=== PATIENT | female | born 1980 | race African-American/Black ===

== ENCOUNTER 2017-04-20 15:57 | Emergency (ER) | payer OTHER ==
[~2017-04-20] VITALS: Ht 172.7 cm; Wt 58.1 kg
--- NOTE | 2017-04-20 16:56 | ED GI/GU/ABDOMINAL COMPLAINT ---
History of Present Illness General Chief Complaint: Abdominal Pain/Flank Pain Stated Complaint: LT FLANK PAIN Source: patient Exam Limitations: no limitations Vital Signs & Intake/Output Vital Signs & Intake/Output Vital Signs Date Time Temp Pulse Resp B/P B/P Pulse O2 O2 Flow FiO2 Mean Ox Delivery Rate 04/20 1752 98.6 100 18 118/86 97 Room Air 04/20 1605 98.6 113 18 111/81 98 Room Air ED Intake and Output 04/21 0000 04/20 1200 Intake Total 0 Output Total Balance 0 Intake, Oral 0 Patient 128 lb Weight Weight Reported by Patient Measurement Method Allergies Coded Allergies: No Known Allergies (04/20/17) Reconcile Medications Bupropion HCl (Wellbutrin XL) 300 MG TAB.ER.24H 1 TAB PO QAM MENTAL HEALTH ( Reported) Bupropion HCl (Wellbutrin XL) 150 MG TAB.ER.24H 1 TAB PO QAM MENTAL HEALTH ( Reported) Buspirone HCl 15 MG TABLET 1 TAB PO BID MENTAL HEALTH (Reported) Ciprofloxacin HCl (Cipro) 500 MG TABLET 1 TAB PO BID UTI Hydroxyzine Pamoate (Vistaril) 25 MG CAPSULE 1 CAP PO 4XDAILY ANXIETY ( Reported) Levonorgestrel (Mirena) 20 MCG/24 HOUR (5 YEARS) IUD CONTROL (Reported) Meloxicam (Mobic) 15 MG TABLET 1 TAB PO DAILY PAIN Mirtazapine (Remeron) 15 MG TABLET 1 TAB PO QPM MENTAL HEALTH (Reported) Quetiapine Fumarate (Seroquel XR) 400 MG TAB.ER.24H 1 TAB PO QPM MENTAL HEALTH (Reported) Quetiapine Fumarate (Seroquel) 50 MG TABLET 1-2 TAB PO PRN ANXIETY (Reported) Triage Note: 36 YO FEMALE C/O L SIDED LOWER BACK PAIN. STATES SHE DID HAVE PAIN WITH URINATION BUT THEN IT STOPPED. -NVD. Triage Nurses Notes Reviewed? yes ? N Is pt currently ? No Onset: Gradual Duration: constant Timing: recent history Severity Numbers: 5 Location: urethral Radiation: back HPI: Patient presents emergency room with concerns of gradual onset of left-sided back pain dysuria and increased frequency of urination Patient has been able tolerate by mouth Denies any fever chills denies any abdominal pain nausea vomiting. Patient has not taken any medications for symptoms. Denies any vaginal bleeding vaginal discharge (LINDSAY INMAN) Past History Travel History Traveled to [place] past 21 day No Medical History Any Pertinent Medical History? 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 No (LINDSAY INMAN) Review of Systems Review of Systems Constitutional: Denies: chills, fever. EENTM: Reports: no symptoms. Respiratory: Reports: no symptoms. Cardiovascular: Reports: no symptoms. GI: Reports: see HPI. Genitourinary: Reports: see HPI, dysuria. Musculoskeletal: Reports: see HPI, back pain. Skin: Reports: no symptoms. Neurological/Psychological: Reports: no symptoms. Hematologic/Endocrine: Reports: no symptoms. Immunologic/Allergic: Reports: no symptoms. All Other Systems: Reviewed and Negative (LINDSAY INMAN) Physical Exam Physical Exam General Appearance: no apparent distress, alert, comfortable Gastrointestinal: normal bowel sounds, soft, non-tender, no organomegaly Comments: Well-developed well-nourished person in no acute distress HEENT: Normal EENT exam Neck: Supple, no lymphadenopathy, normal range of motion without pain or tenderness Back: LEFT CVA tenderness. Cardiovascular: Regular rate and rhythms no murmurs rubs or gallops, normal JVP Respiratory: Chest nontender. No respiratory distress.breath sounds clear to auscultation bilaterally Abdomen: Soft, nontender nondistended, no appreciable organomegaly. Normal bowel sounds. No ascites Extremity: No edema, no calf tenderness to palpation, normal and equal pulses. Neuro: Alert oriented x3, motor sensory normal, Skin: No appreciable rash on exposed skin, skin is warm and dry. Psych: Mood and affect is normal, memory and judgment is normal. Core Measures ACS in differential dx? No Severe Sepsis Present: No Septic Shock Present: No (LINDSAY INMAN) Progress Differential Diagnosis: AAA, AMI, appendicitis, biliary colic, kidney stone, sEPSIS, uti, PYELONEPHRITIS Plan of Care: Orders Procedure Date/time Status URINE 04/20 1606 Complete URINALYSIS 04/20 160 Complete Laboratory Tests 04/20/17 1705: Urine Color YEL, Urine Clarity HAZY H, Urine pH 6.0, Ur Specific [place] >= 1.030, Urine Protein 100 H, Urine Ketones NEG, Urine Nitrite POS H, Urine Bilirubin NEG, Urine Urobilinogen 0.2, Ur Leukocyte Esterase MOD H, Ur Microscopic SEDIMENT EXAMINED, Urine RBC 10-15 H, Urine WBC 15-25 H, Ur Epithelial Cells RARE, Urine Bacteria MOD H, Urine Hemoglobin LARGE H, Urine Glucose NEG, Urine Test NEGATIVE Patient currently is in no apparent distress afebrile nontoxic appearing is able tolerate by mouth due to history of present as an exam findings patient does have concerns of left CVA tenderness and urinary tract infection for pyelonephritis. Patient was strongly advised to closely monitor symptoms and if symptoms worsen to return to emergency room. Upon discharge patient looks well on no apparent distress and will comply with discharge instructions and had no questions (LINDSAY INMAN) Initial ED EKG: none (LINDSAY INMAN) Departure Departure Disposition: HOME OR SELF CARE Condition: Stable Clinical Impression Primary Impression: Pyelonephritis Referrals: UNKNOWN (PCP) Additional Instructions: As discussed begin the prescription of ciprofloxacin as directed for the full course. Begin the prescription of meloxicam for pain and inflammation. If symptoms worsen or if YOU develop a new concerning symptom return to emergency room immediately. Prescription is waiting a [facility] pharmacy. Follow up with primary care doctor's appointment as you have one this week for further evaluation treatment Departure Forms: Customer Survey General Discharge Information Prescriptions: Current Visit Scripts Ciprofloxacin HCl (Cipro) 1 TAB PO BID #20 TAB Meloxicam (Mobic) 1 TAB PO DAILY #14 TAB (LINDSAY INMAN) PA/SUPERVISING APPRAISER Co-Sign Statement Statement: ED Attending supervision documentation- [] I saw and evaluated the patient. I have also reviewed all the pertinent lab results and diagnostic results. I agree with the findings and the plan of care as documented in the PA's/SUPERVISING APPRAISER's documentation. [X]I have reviewed the ED Record and agree with the PA's/SUPERVISING APPRAISER's documentation. [] Additions or exceptions (if any) to the PAs/SUPERVISING APPRAISER's note and plan are summarized below: [] (SANGITA LUNA,JOSE LUIS)
[2017-04-20] MEDS ORDERED: SEROQUEL XR400 M1 PO (17:05)
[2017-04-20] MEDS ORDERED: WELLBUTRIN XL300 M2 PO (17:06)
[2017-04-20] MEDS ORDERED: SEROQUEL50 M1 PO (17:06)
[2017-04-20] MEDS ORDERED: MIRENA1 EACH (17:08)
[2017-04-20] MEDS ORDERED: WELLBUTRIN XL150 M2 PO (17:10)
[2017-04-20] MEDS ORDERED: BUSPIRONE HCL15 M1 PO (17:11)
[2017-04-20] MEDS ORDERED: REMERON15 M2 PO (17:11)
[2017-04-20] MEDS ORDERED: VISTARIL25 M1 PO (17:11)
[2017-04-20] MEDS ORDERED: CIPRO500 M1 PO (17:43)
[2017-04-20] MEDS ORDERED: MOBIC15 M1 PO (17:43)
[2017-04-20 17:52] VITALS: BP 118/86
== END 2017-04-20 17:53 ==
LOC: ERH 15:57
DX: N12 Tubulo-interstitial nephritis, not specified as acute or chronic (principal)
CPT/HCPCS: 81001; 81025